=== PATIENT | female | born 1960 | race Caucasian/White ===

== ENCOUNTER 2020-12-25 05:57 | Day surgery (SDC) | payer OTHER, SELFPAY ==
[~2020-12-25] VITALS: Ht 165.1 cm; Wt 65.8 kg
[~2020-12-25 05:57] MED LIST: ATOR40TA PO; BENA10TA25 PO; DOCU-299 PO; GABA100C PO; GLIP10TA3 PO; LOSA50TA57 PO; METF850T PO; TRAM50TA1 PO
[2020-12-25] MEDS ORDERED: fentaNYL citrate 0.05 MG/ML VIAL ONE (07:40)
[2020-12-25] MEDS ORDERED: LIDOCAINE 2% 100 MG/5 ML UJET TP ONE (07:40)
[2020-12-25] MEDS ORDERED: diphenhydrAMINE 50 MG/ML VIAL ONE (07:40)
[2020-12-25] MEDS ORDERED: MIDAZOLAM 5 MG/5 ML VIAL ONE (07:40)
[2020-12-25] MEDS ORDERED: SIMETHICONE 40 MG/0.6 ML ONE (08:21)
[2020-12-25] MEDS ORDERED: fentaNYL citrate 0.05 MG/ML VIAL IVP ONE (14:50)
[2020-12-25] MEDS ORDERED: MIDAZOLAM 2 MG/2 ML VIAL IVP ONE (14:50)
== END 2020-12-25 09:25 | disposition home or self-care (01) ==
LOC: MDS 05:57 → MMU 06:13 → MDS 09:25
PROVIDERS: ATTEND Internal Medicine Gastroenterology
DX: K59.00 Constipation, unspecified (principal); D12.2 Benign neoplasm of ascending colon; E11.9 Type 2 diabetes mellitus without complications; I10 Essential (primary) hypertension; E78.5 Hyperlipidemia, unspecified; Z79.84 Long term (current) use of oral hypoglycemic drugs; Z79.82 Long term (current) use of aspirin; Z79.899 Other long term (current) drug therapy; Z20.822 Contact with and (suspected) exposure to COVID-19
CPT/HCPCS: 45385; J2250; J3010; U0003; J1200